=== PATIENT | male | born 1960 | race Caucasian/White ===

== ENCOUNTER 2024-01-05 10:15 | Outpatient (CLI) | payer BC, SELFPAY ==
--- NOTE | ~2024-01-05 | CT_ITS ---
EXAMINATION: CT lung screening DATE: 01/05/2024 10:37 INDICATION: Personal history of nicotine dependence TECHNIQUE: Computed tomography (CT) of the chest was performed without intravenous contrast. The dose -length product was 238.89 mGy-cm. Automated exposure control and iterative reconstruction technique were employed. COMPARISON: CT dated 05/03/2019 FINDINGS: Heart size is normal. No significant pleural or pericardial effusion. No thoracic lymphaden opathy. No endobronchial lesions. There is groundglass opacification the right lower lobe, likely ate lectasis or scarring. No suspicious pulmonary nodules or masses. Calcified granuloma right lung base. There is a 2 mm left upper lobe nodule. No endobronchial lesions. No pneumothorax. Mild thoracic spo ndylosis. IMPRESSION: 1. Lung-RADS category 2: Benign appearance or behavior. Continue annual screening with noncontrast lo w-dose chest CT in 12 months. Reviewed, dictated and finalized at location B. IMPRESSION: 1. Lung-RADS category 2: Benign appearance or behavior. Continue annual screeni ng with noncontrast low-dose chest CT in 12 months.
== END 2024-01-05 10:16 ==
LOC: MICIMG 10:17
PROVIDERS: PCP Internal Medicine; Visit Provider Internal Medicine
DX: Z12.2 Encounter for screening for malignant neoplasm of respiratory organs (principal); Z87.891 Personal history of nicotine dependence
CPT/HCPCS: 71271